=== PATIENT | male | born 1950 | race Caucasian/White ===

== ENCOUNTER → 2020-11-01 10:29 | Outpatient (BNVA) | payer MEDICARE, SELFPAY | PROVIDERS: Family Provider Nurse Practitioner; PCP Nurse Practitioner; Visit Provider Nurse Practitioner | DX: M25.562 Pain in left knee (principal) | CPT/HCPCS: 73562 ==

== ENCOUNTER → 2021-02-05 15:22 | Outpatient (BNVA) | payer MEDICARE, SELFPAY | PROVIDERS: Family Provider Nurse Practitioner; PCP Nurse Practitioner; Visit Provider Nurse Practitioner Family | DX: I10 Essential (primary) hypertension (principal); Z12.5 Encounter for screening for malignant neoplasm of prostate; M25.50 Pain in unspecified joint | CPT/HCPCS: 80053; 80061; 82306; 82607; 83735; 84443; 84550; 85025; 86140; 86160; 86162; 86200; 86235; 86255; 86376; 86431; 86618; 86666; 86757; G0103 ==

== ENCOUNTER 2021-03-02 13:28 | Outpatient (CLI) | payer MEDICARE, SELFPAY ==
--- NOTE | 2021-03-02 13:38 | XR_ITS ---
WS: [id number] Sacroiliac joints, 3 views, 03/02/2021 Clinical Data: M25.551 - Pain in right hip Comparison: None. Findings: The SI joints are normal in width inferiorly. No erosion, sclerosis or destruction is seen. There are no fractures or dislocations. There is loss of definition of the superior aspect of the SI joints wh ich can be seen with osteoarthritis. The adjacent visualized pelvis and hips are unremarkable. XR/XR sacroiliac jts m 3V [id number] Impression: Loss of definition of the superior aspect of the SI joints.
--- NOTE | 2021-03-02 13:38 | XR_ITS ---
WS: [id number] Lumbar spine, AP view, L5-S1 view, lateral in flexion, extension and neutral position, 03/02/2021 Clinical Data: M54.50 - Low back pain, unspecified Comparison: Lumbar spine, 08/23/2015. Findings: No subluxation is seen. There is a compression fracture of the L1 vertebral body with loss of 75% in the anterior and central vertebral body height. The loss of height is more than was noted 5 1/2 years ago. There is disc space narrowing from L1-L2 through L3-L4. There is a dextroscoliosis. There is os teoarthritic spurring from L1 through L5. The transverse processes and SI joints are normal. On flexion and extension there is no change in the height of the compression fracture and no limitati on of motion. XR/XR lumbar spine min 4V [id number] Impression: 1. Compression fracture of the L1 vertebral body which is worse slightly than b efore. 2. Dextroscoliosis in multilevel degenerative disc disease. 3. 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 4. No change in height of the compression fracture and no limitation of motion on flexion and extension.
== END 2021-03-02 13:29 | disposition home or self-care (01) ==
PROVIDERS: PCP Nurse Practitioner; Visit Provider Nurse Practitioner
DX: M25.551 Pain in right hip (principal); M25.552 Pain in left hip; S32.019A Unspecified fracture of first lumbar vertebra, initial encounter for closed fracture; X58.XXXA Exposure to other specified factors, initial encounter; M47.816 Spondylosis without myelopathy or radiculopathy, lumbar region; M51.36 Other intervertebral disc degeneration, lumbar region
CPT/HCPCS: 72110; 72202

== ENCOUNTER → 2021-03-13 10:50 | Outpatient (BNVA) | payer MEDICARE, SELFPAY | PROVIDERS: PCP Nurse Practitioner; Referring Provider Nurse Practitioner Family; Visit Provider Anesthesiology Pain Medicine | DX: M47.816 Spondylosis without myelopathy or radiculopathy, lumbar region (principal); M51.16 Intervertebral disc disorders with radiculopathy, lumbar region; M79.604 Pain in right leg; M79.605 Pain in left leg; F17.200 Nicotine dependence, unspecified, uncomplicated | CPT/HCPCS: 99204 ==

== ENCOUNTER 2021-03-28 06:57 | Outpatient (CLI) | payer MEDICARE, SELFPAY ==
--- NOTE | 2021-03-28 07:15 | MR_ITS ---
WS: [id number] MRI LUMBAR SPINE NONCONTRAST TECHNIQUE: Sagittal T1, T2 and STIR imaging. Axial T1 and T2 imaging. CLINICAL INFORMATION: M54.50 - Low back pain, unspecified COMPARISON: None. FINDINGS: Lumbar scoliosis. Chronic compression with anterior wedging L1 vertebral body with approximately 75% compression centrally. No retropulsion. No acute appearing compression fractures. L1-L2: Mild annular bulging with mild central canal stenosis. Impingement on the subarticular recess bilaterally left greater than right. Mild facet arthropathy. Mild right greater than left foraminal n arrowing. Mild facet arthropathy. L2-L3: Mild disc bulging with mild central canal stenosis. Impingement left subarticular recess and t raversing left L3 nerve root. Mild facet arthropathy. Mild bilateral foraminal narrowing. L3-L4: Mild disc bulging with moderate central canal stenosis. Mild facet arthropathy with ligamentum flavum flavum hypertrophy. Impingement on the subarticular recess bilaterally. Moderate left and mil d right foraminal narrowing. L4-L5: Mild disc bulging with moderate central canal stenosis. Impingement traversing L5 nerve roots bilaterally. Moderate facet arthropathy. Moderate to severe right and mild left foraminal narrowing. L5-S1: Shallow right pericentral protrusion impinges the traversing right S1 nerve root in the subart icular recess. Mild right bony foraminal narrowing. Left foramen is patent. Mild to moderate facet ar thropathy. Visualized pelvic bony structures: Normal. Paravertebral soft tissues: Normal. MR/MR lumbar spine wo con* [id number] IMPRESSION: 1. Lumbar curve convex right. No acute compression fractures. 2. Chronic compression fracture L1 vertebral body described above. No retropul justino. 3. Moderate central canal stenosis L3-4 and L4-5 with impingement subarticular recess bilaterally slightly worse at L4-5. 4. Shallow right pericentral protrusion L5-S1 impinges the traversing right S1 nerve root in the subarticular recess. 5. Mild central canal stenosis L1-2 and L2-3. 6. Moderate bony foraminal narrowing left L3-4 and moderate to severe right L4 -5.
== END 2021-03-28 06:58 | disposition home or self-care (01) ==
LOC: RADSHAW 06:58
PROVIDERS: PCP Nurse Practitioner; Visit Provider Anesthesiology Pain Medicine
DX: S32.019A Unspecified fracture of first lumbar vertebra, initial encounter for closed fracture (principal); X58.XXXA Exposure to other specified factors, initial encounter; M48.061 Spinal stenosis, lumbar region without neurogenic claudication; M51.27 Other intervertebral disc displacement, lumbosacral region
CPT/HCPCS: 72148

== ENCOUNTER 2022-07-25 10:57 | Outpatient (CLI) | payer MEDICARE, SELFPAY ==
[2022-07-25 11:59] LABS: Basophils # 0.1 10^3/uL (0.0-0.1); Basophils % 0.8 %; Eosinophils # 0.4 10^3/uL (0.0-0.8); Eosinophils % 3.5 %; Hematocrit 48.2 % (42.0-52.0); Hemoglobin 15.9 g/dL (11.7-16.6); Lymphocytes % 29.5 %; Mean Corpuscular Hemoglobin 31.7 pg (28.0-34.0); Mean Corpuscular Volume 96.2 fl (80-94); Mean Platelet Volume 9.6 fL (7.4-10.4); Monocytes # 1.2 10^3/uL (0.2-0.9); Monocytes % 11.7 %; Neutrophils % 54.1 %; Nucleated Red Blood Cells % 0 %; Platelet Count 258 10^3/cmm (130-400); Red Blood Count 5.01 10^6/uL (4.1-5.3); Red Cell Distribution Width 13.5 % (12.1-15.1)
[2022-07-25 12:20] LABS: Alanine Aminotransferase 15 U/L (0-41); Albumin Level 4.2 g/dL (3.5-5.2); Alkaline Phosphatase 79 U/L (40-130); Anion Gap 12.5 (5-19); Aspartate Amino Transferase 21 U/L (0-40); Blood Urea Nitrogen 21 mg/dL (8-23); Calcium 9.6 mg/dL (8.5-10.5); Carbon Dioxide 29 mmol/L (22-29); Chloride 97 mmol/L (98-107); Globulin 3.4 g/dL (1.3-4.6); Glomerular Filtration Rate 54.7 mL/min (90-130); Glucose 91 mg/dL (65-115); Osmolality Calculated 281 mOsm/kg (285-295); Potassium 4.5 mmol/L (3.5-5.1); Sodium 134 mmol/L (136-145); Total Bilirubin 0.6 mg/dL (0.15-1.2); Total Protein 7.6 g/dL (6.6-8.7)
== END 2022-07-25 10:58 | disposition home or self-care (01) ==
LOC: LAB 10:59
PROVIDERS: PCP Nurse Practitioner; Visit Provider Dermatology
DX: C44.91 Basal cell carcinoma of skin, unspecified (principal); Z79.899 Other long term (current) drug therapy
CPT/HCPCS: 36415; 80053; 85025

== ENCOUNTER 2022-08-08 10:52 | Outpatient (CLI) | payer MEDICARE, SELFPAY ==
[2022-08-08] MEDS: iohexol 350 mg/mL 500 mL Btl (per mL) IV (11:01)
--- NOTE | 2022-08-08 11:30 | CT_ITS ---
WS: [id number] CT NECK TECHNIQUE: Contrast-enhanced CT of the neck with coronal and sagittal reformatted images. CLINICAL INFORMATION: Basal cell carcinoma L cheek COMPARISON: None. DLP: 246.[address] scans at [facility] use at least one of these dose optimization techniques: automated e xposure control; mA and/or kV adjustment per patient size (includes targeted exams where dose is matc hed to clinical indication); or iterative reconstruction. FINDINGS: Mild skin thickening with soft tissue defect overlying the LEFT facial soft tissues compatible with p atient's known basal cell carcinoma. Mild skin thickening measuring 3 mm in maximum transverse dimens ion. Otherwise normal underlying soft tissues. No drainable fluid collections. Mild inflammatory caceres ges in the paranasal sinuses with mild polypoid mucosal thickening. Small amount of fluid in the RIGHT frontal sinus and frontal ethmoidal recess. Mild mucosal thickenin g sphenoid sinuses. Polypoid mucosal thickening along the RIGHT ostiomeatal unit. Normal posterior na sopharynx. Normal parapharyngeal fat. Parotid glands and submandibular glands are normal. No evidence of supraglottic or glottic mass. Normal thyroid gland. Lung apices are well aerated. No cervical lymphadenopathy. Straightening of the normal cervical lordosis. Disc space narrowing wors e at C5-C6 and C6-C7. Slight anterolisthesis C4 on C5 and C5 on C6. CT/CT neck w con* [id number] IMPRESSION: 1. Soft tissue defect with mild skin thickening overlying the LEFT facial soft tissues compatible with known basal cell carcinoma. Maximum transverse dimensi on 3.1 mm. No evidence of underlying deep soft tissue involvement. 2. No cervical lymphadenopathy. 3. Mild polypoid mucosal thickening in the paranasal sinuses. 4. Moderate spondylitic changes cervical spine.
== END 2022-08-08 10:53 | disposition home or self-care (01) ==
PROVIDERS: PCP Nurse Practitioner; Visit Provider Dermatology
DX: C44.91 Basal cell carcinoma of skin, unspecified (principal)
CPT/HCPCS: 70491; Q9967

== ENCOUNTER → 2022-09-11 13:02 | Outpatient (BNVA) | payer MEDICARE, SELFPAY | PROVIDERS: PCP Nurse Practitioner; Visit Provider Dermatology | DX: C44.319 Basal cell carcinoma of skin of other parts of face (principal); Z72.0 Tobacco use; L57.8 Other skin changes due to chronic exposure to nonionizing radiation; Z79.899 Other long term (current) drug therapy | CPT/HCPCS: 99214 ==

== ENCOUNTER → 2022-11-11 14:29 | Outpatient (BNVA) | payer MEDICARE, SELFPAY | PROVIDERS: PCP Nurse Practitioner; Visit Provider Dermatology | DX: C44.319 Basal cell carcinoma of skin of other parts of face (principal); L57.8 Other skin changes due to chronic exposure to nonionizing radiation; Z79.899 Other long term (current) drug therapy | CPT/HCPCS: 99214 ==

== ENCOUNTER → 2023-01-09 15:29 | Outpatient (BNVA) | payer MEDICARE, SELFPAY | PROVIDERS: PCP Nurse Practitioner; Visit Provider Dermatology | DX: C44.319 Basal cell carcinoma of skin of other parts of face (principal); Z79.899 Other long term (current) drug therapy; D22.4 Melanocytic nevi of scalp and neck | CPT/HCPCS: 99214 ==

== ENCOUNTER → 2023-03-11 15:42 | Outpatient (BNVA) | payer MEDICARE, SELFPAY | PROVIDERS: PCP Nurse Practitioner; Visit Provider Dermatology | DX: C44.319 Basal cell carcinoma of skin of other parts of face (principal); Z79.899 Other long term (current) drug therapy | CPT/HCPCS: 99214 ==

== ENCOUNTER → 2023-05-28 09:31 | Outpatient (BNVA) | payer MEDICARE, SELFPAY | PROVIDERS: PCP Nurse Practitioner; Visit Provider Dermatology | DX: D48.5 Neoplasm of uncertain behavior of skin (principal); C44.319 Basal cell carcinoma of skin of other parts of face | CPT/HCPCS: 11102; 99214 ==

== ENCOUNTER → 2023-09-29 13:00 | Outpatient (BNVA) | payer MEDICARE, SELFPAY | PROVIDERS: PCP Nurse Practitioner; Visit Provider Dermatology | DX: C44.319 Basal cell carcinoma of skin of other parts of face (principal); L57.0 Actinic keratosis; D36.11 Benign neoplasm of peripheral nerves and autonomic nervous system of face, head, and neck; L57.8 Other skin changes due to chronic exposure to nonionizing radiation | CPT/HCPCS: 17000; 99213 ==

== ENCOUNTER → 2024-03-30 13:46 | Outpatient (BNVA) | payer MEDICARE, SELFPAY | PROVIDERS: PCP Nurse Practitioner; Visit Provider Dermatology | DX: L57.8 Other skin changes due to chronic exposure to nonionizing radiation (principal); D22.39 Melanocytic nevi of other parts of face; D22.5 Melanocytic nevi of trunk; L98.8 Other specified disorders of the skin and subcutaneous tissue; Z85.828 Personal history of other malignant neoplasm of skin; D48.5 Neoplasm of uncertain behavior of skin; L57.0 Actinic keratosis | CPT/HCPCS: 11102; 17000; 99213 ==

== ENCOUNTER 2024-11-24 10:12 | Emergency (ER) | payer MEDICARE, SELFPAY ==
[2024-11-24 10:40] LABS: Hematocrit 45.4 % (37-53); Hemoglobin 15.20 g/dL (11.27-16.99); Mean Corpuscular HGB Conc 33.5 g/dL (30-55); Mean Corpuscular Hemoglobin 30.9 pg (27-33); Mean Corpuscular Volume 92.3 fl (82-101); Platelet Count 191 10^3/cmm (157-399); Red Blood Count 4.92 10^6/uL (3.85-5.65); White Blood Count 17.87 10^3/uL (3.29-11.43)
[2024-11-24 10:59] VITALS: BP 134/83; PULSE 77; RESP 18; TEMP 36.8; O2SAT 97; BMI 30.7
[2024-11-24 11:00] LABS: Slide Review Slide Review Perform
[2024-11-24 11:01] LABS: Absolute Segmented Neutrophil 2.9 10/cmm (1.6-7.1); Atypical Lymphs 21.0 % (0-5); Band Neutrophils Absolute 0.0 10^3/cmm (0.0-1.2); Total Cells Counted 100 (0-100)
[2024-11-24 11:10] LABS: Alanine Aminotransferase 73 U/L (0-41); Albumin Level 3.7 g/dL (3.5-5.2); Alkaline Phosphatase 200 U/L (40-130); Anion Gap 13.6 (5-19); Aspartate Amino Transferase 77 U/L (0-40); Blood Urea Nitrogen 25 mg/dL (8-23); Calcium 9.4 mg/dL (8.5-10.5); Carbon Dioxide 30 mmol/L (22-29); Chloride 99 mmol/L (98-107); Creatinine Clr Calc Pharmacy 53.5790; Globulin 3.3 g/dL (1.3-4.6); Glucose 98 mg/dL (65-115); NT Pro B Type Natriuretic Pept 347 pg/mL (0-125); Osmolality Calculated 288 mOsm/kg (285-295); Potassium 5.6 mmol/L (3.5-5.1); Sodium 137 mmol/L (136-145); Total Protein 7.0 g/dL (6.6-8.7)
[2024-11-24 11:34] VITALS: BP 158/86; PULSE 74; RESP 18; O2SAT 98
--- NOTE | 2024-11-24 12:02 | W.ED.GENADLT ---
HPI - General Adult General: Chief complaint: General Medical Stated complaint: legs swollen Time Seen by Provider: 11/24/24 11:55 History of Present Illness: 74-year-old male presents to the emergency room with complaints of leg swelling some abdominal discomfort he said poor appetite the last several days. Denies chest pain no fever sweats or chills. Has some mild exertional dyspnea and nonproductive cough. Increased swelling of the lower extremities Associated symptoms: Reports dyspnea; Deny chest pain or rash Related Data Home Medications ?Medication ?Instructions ?Recorded ?Confirmed ibuprofen 200 mg tablet (Advil) 600 mg PO Q6H PRN Fever Or Pain 11/24/24 11/24/24 apfizrmlvzhq-rja-hpanu acid-vit 1 tab PO DAILY 11/24/24 11/24/24 K-lycop 400 mcg-20 mcg-370 mcg tablet (Men's 50 Plus Multivitamin) Previous Rx's ?Medication ?Instructions ?Recorded albuterol sulfate 90 mcg/actuation 2 inh inhalation Q4H PRN shortness 11/24/24 aerosol inhaler of breath or wheezing #18 grams budesonide-formoterol HFA 80 2 inh inhalation BID #10.2 grams 11/24/24 mcg-4.5 mcg/actuation aerosol inhaler (Symbicort) furosemide 20 mg tablet (Lasix) 20 mg PO DAILY #30 tabs 11/24/24 Allergies Allergy/AdvReac Type Severity Reaction Status Date / Time No Known Allergies Allergy Verified 07/25/22 10:02 Review of Systems Const: Denies: fever(s) or chills Card: Reports: swelling of feet/ankles and dyspnea on exertion; Denies: chest pain Resp: Reports: dyspnea, non-productive cough, wheezing and chest congestion GI: Denies: abdominal pain : Denies: dysuria, urinary frequency or urinary urgency Musc: Denies: neck pain or back pain Skin/Breast: Denies: rash PFSH ED PFSH: Medical History 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 Surgical History History of cataract surgery right eye History of left knee surgery Family History Other Cancer Diabetes Denies family history of Dementia Hypertension Stroke Social History Smoking and tobacco/nicotine status: current every day tobacco/nicotine user cigarettes [ Other cigarette details: 1 Pack per week] and e-cigarettes E-Cigarette Details: vaporizer device E-cig/vape details: 0.5 mg nicotine Second hand smoke exposure: No Alcohol intake: current Alcohol intake frequency: 0-2 Drinks per Day Alcohol type: hard liquor Substance/Drug Use: former Adopted: No Caregiver/support person: No Lives independently: Yes Household members: significant other Housing: House Marital status: Single Number of children: 2 Number of grandchildren: 8 service: No Current occupational status: retired Do you think of yourself as: Straight/Heterosexual Current gender identity: Male Special ana needs: No Physical Exam Const: GENERAL APPEARANCE: cooperative ORIENTATION/CONSCIOUSNESS: Yes awake, Yes oriented to person, Yes oriented to place and Yes oriented to time HENMT: COMMON NORMALS: normocephalic, atraumatic and hearing grossly normal bilaterally HEAD & SCALP: normocephalic and atraumatic Resp: COMMON NORMALS: normal respiratory effort, No retractions and No use of accessory muscles AUSCULTATION: crackles and wheezes Cardio: COMMON NORMALS: regular rate, regular rhythm and No murmurs present (Cardio) RATE: regular rate RHYTHM: regular rhythm GI: COMMON NORMALS: Soft to palpation and No hepatosplenomegaly present AUSCULTATION: Yes normoactive bowel sounds PALPATION: Yes Soft to palpation, No Tenderness to palpation present (GI), No Guarding due to palpation present (GI) and Yes No hepatosplenomegaly present Extremity: COMMON NORMALS: normal to inspection, capillary refill normal, no clubbing, cyanosis or edema, no calf tenderness and no pedal edema Neuro: SENSORIUM/ORIENTATION: Yes oriented to person, Yes oriented to place and Yes oriented to time Skin: COMMON NORMALS: no rashes or lesions noted GENERAL SKIN EXAM: no rashes or lesions noted Course Vital Signs: Vital signs: Vital Signs Temperature 98.3 F 11/24/24 10:59 Pulse Rate 89 11/24/24 14:25 Respiratory Rate 18 11/24/24 14:25 Blood Pressure 155/95 11/24/24 14:25 Pulse Oximetry 98 11/24/24 14:25 Oxygen Delivery Me thod Room Air 11/24/24 12:59 MDM - General Adult Medical Decision Making Improved with nebulizer. She states he feels much better. He said some urination as well. Will discharge him home on Lasix 20 mg daily start him on Symbicort 2 puffs twice daily albuterol to use as needed December for outpatient PFTs and echocardiogram follow-up with cardiology and pulmonology Medical Records I reviewed the patient's medical records. Lab Data I reviewed the patient's lab results. 11/24/24 10:35 11/24/24 10:35 Radiology Impressions Chest X-Ray 11/24/24 12:04 IMPRESSION: No acute findings. Laboratory Results WBC 17.87 10^3/uL (3.29-11.43) H 11/24/24 10:35 RBC 4.92 10^6/uL (3.85-5.65) 11/24/24 10:35 Hgb 15.20 g/dL (11.27-16.99) 11/24/24 10:35 Hct 45.4 % (37-53) 11/24/24 10:35 MCV 92.3 fl (82-101) 11/24/24 10:35 MCH 30.9 pg (27-33) 11/24/24 10:35 MCHC 33.5 g/dL (30-55) 11/24/24 10:35 RDW 13.5 % (12.1-15.1) 11/24/24 10:35 Plt Count 191 10^3/cmm (157-399) 11/24/24 10:35 MPV 10.4 fL (7.4-10.4) 11/24/24 10:35 Lymph % (Auto) Not Reportable 11/24/24 10:35 [place] % (Auto) Not Reportable 11/24/24 10:35 Lymph # (Auto) Not Reportable 11/24/24 10:35 [place] # (Auto) Not Reportable 11/24/24 10:35 Total Counted 100 (0-100) 11/24/24 10:35 Atypical Lymphs % 21.0 % (0-5) H 11/24/24 10:35 Absolute Neutrophils 2.9 10^3/cmm (1.4-6.5) 11/24/24 10:35 Segmented Neutrophils 16 % 11/24/24 10:35 Band Neutrophils 0.0 % 11/24/24 10:35 Absolute Lymphocytes 14.1 10^3/cmm (1.2-3.4) H 11/24/24 10:35 Lymphocytes (Manual) 58 % 11/24/24 10:35 Monocytes (Manual) 5.0 % 11/24/24 10:35 Absolute Monocytes 0.9 10^3/cmm (0.1-0.6) H 11/24/24 10:35 Eosinophils (Manual) 0 % 11/24/24 10:35 Absolute Eosinophils 0.0 10^3/cmm (0.0-0.7) 11/24/24 10:35 Basophils (Manual) 0.0 % 11/24/24 10:35 Absolute Basophils 0.0 10^3/cmm (0.0-0.2) 11/24/24 10:35 Platelet Estimate Normal (Normal) 11/24/24 10:35 Sodium 137 mmol/L (136-145) 11/24/24 10:35 Potassium 5.6 mmol/L (3.5-5.1) H 11/24/24 10:35 Chloride 99 mmol/L (98-107) 11/24/24 10:35 Carbon Dioxide 30 mmol/L (22-29) H 11/24/24 10:35 Anion Gap 13.6 (5-19) 11/24/24 10:35 BUN 25 mg/dL (8-23) H 11/24/24 10:35 Creatinine 1.5 mg/dL (0.7-1.2) H 11/24/24 10:35 GFR Calculation Not Reportable 11/24/24 10:35 Glucose 98 mg/dL (65-115) 11/24/24 10:35 Calculated Osmolality 288 mOsm/kg (285-295) 11/24/24 10:35 Calcium 9.4 mg/dL (8.5-10.5) 11/24/24 10:35 Total Bilirubin 0.4 mg/dL (0.15-1.2) 11/24/24 10:35 AST 77 U/L (0-40) H 11/24/24 10:35 ALT 73 U/L (0-41) H 11/24/24 10:35 Alkaline Phosphatase 200 U/L (40-130) H 11/24/24 10:35 NT-Pro-B Natriuret Pep 347 pg/mL (0-125) H 11/24/24 10:35 Total Protein 7.0 g/dL (6.6-8.7) 11/24/24 10:35 Albumin 3.7 g/dL (3.5-5.2) 11/24/24 10:35 Globulin 3.3 g/dL (1.3-4.6) 11/24/24 10:35 Urine Color Yellow (Yellow) 11/24/24 14:21 Urine Appearance Clear (CLEAR) 11/24/24 14:21 Urine pH 5.5 (5-7) 11/24/24 14:21 Ur Specific [place] 1.006 (1.005-1.030) 11/24/24 14:21 Urine Protein Negative (Negative) 11/24/24 14:21 Urine Glucose (UA) Negative (Normal) 11/24/24 14:21 Urine Ketones Negative (Negative) 11/24/24 14:21 Urine Blood Negative (Negative) 11/24/24 14:21 Urine Nitrate Negative (Negative) 11/24/24 14:21 Urine Bilirubin Negative (Negative) 11/24/24 14:21 Urine Urobilinogen 0.2 mg/dL (Negative) 11/24/24 14:21 Ur Leukocyte Esterase Negative (Negative) 11/24/24 14:21 Urine RBC 0-2 /hpf (0-2) 11/24/24 14:21 Urine WBC 0-5 /hpf (0-5) 11/24/24 14:21 Ur Squamous Epith Cells 0-5 /hpf (0-5) 11/24/24 14:21 Amorphous Sediment Not Reportable 11/24/24 14:21 Urine Bacteria None seen /hpf (NONE) 11/24/24 14:21 Hyaline Casts 0-4 /lpf H 11/24/24 14:21 All radiology interpretation(s) finalized by discharge Discharge Plan Discharge Patient Disposition: Home Clinical Impression: COPD (chronic obstructive pulmonary disease) Qualifiers: COPD type: COPD with acute exacerbation Qualified Code(s): J44.1 - Chronic obstructive pulmonary disease with (acute) exacerbation HTN (hypertension) Qualifiers: Hypertension type: primary hypertension Qualified Code(s): I10 - Essential (primary) hypertension Condition: Stable Prescriptions: New furosemide [Lasix] 20 mg tablet 20 mg PO DAILY Qty: 30 0RF albuterol sulfate 90 mcg/actuation HFA aerosol inhaler 2 inh INHALATION Q4H PRN (Reason: shortness of breath or wheezing) Qty: 18 0RF budesonide-formoterol [Symbicort] 80-4.5 mcg/actuation HFA aerosol inhaler 2 inh inhalation BID Qty: 10.2 0RF No Action ibuprofen [Advil] 200 mg Tablet 600 mg PO Q6H PRN (Reason: Fever Or Pain) Men's 50 Plus Multivitamin 400-20-370 mcg Tablet 1 tab PO DAILY Discharge Orders: Discharge ED (Routine); Ordered 11/24/24 Ordered By: Tolu Schulte Referrals: Marc Thomas FNP-C [Primary Care Provider, Family Practice] Discharge Diet: Usual diet Discharge Activity: Resume usual activity Patient Instructions: Opioid Safety, Pain Management, Patient Portal & Sy[place] Instructions Activity Restrictions/Additional Instructions: [email or web address]. It is very important that you follow up as instructed or that you return to the Emergency Department should you have concerns or if your condition changes or worsens in any way. You were seen in the emergency room with complaints of shortness of breath. On evaluation in the emergency room you did have some slight wheezing which you reported improved and your breathing improved after breathing treatment. You are also showed some signs of fluid overload and hypertension recommend that you start on Lasix 20 mg once daily. Will set you up for an outpatient echocardiogram. For your breathing recommend he start on Symbicort 2 puffs twice daily and use albuterol as needed will set you up for outpatient pulmonary function test case management make arrangements for you to follow-up at the pulmonology and cardiology clinics for these things. Print Language: Bruneian Coding Level of Care Code ED Automatic Line Set Up Mechanic for Esther Kenny
--- NOTE | 2024-11-24 12:04 | XRR_ITS ---
PROCEDURE INFORMATION: Exam: XR Chest Exam date and time: 11/24/2024 12:09 PM Age: 74 years old Clinical indication: Cough and dyspnea; Additional info: Dyspnea/cough TECHNIQUE: Imaging protocol: Radiologic exam of the chest. Views: 1 view. COMPARISON: No relevant prior studies available. FINDINGS: Lungs: Lungs appear hyperinflated. No consolidation. Pleural spaces: Unremarkable. No pleural effusion. No pneumothorax. Heart/Mediastinum: Unremarkable. No cardiomegaly. Bones/joints: Unremarkable. XR/XR chest 1V portable [id number] IMPRESSION: No acute findings.
[2024-11-24] MEDS: FUROsemide 10 mg/mL SDV 4mL 40 MG IVP (12:51)
[2024-11-24 12:59] VITALS: PULSE 71; RESP 18; O2SAT 99
[2024-11-24 13:05] VITALS: PULSE 75
[2024-11-24 14:13] VITALS: BP 155/95; PULSE 75; RESP 18; O2SAT 98
[2024-11-24 14:25] VITALS: BP 155/95; PULSE 89; RESP 18; O2SAT 98
[2024-11-24 14:33] LABS: Glucose Urine UA Negative (Normal); Nitrate Urine Negative (Negative); Specific Gravity, Urine 1.006 (1.005-1.030)
[2024-11-24 14:36] LABS: Add Urine Microscopic? YES
--- NOTE | 2024-11-25 16:43 | PC.NURSE ---
Cardiology and pulmonology referral sent.
== END 2024-11-24 14:26 | disposition home or self-care (01) ==
PROVIDERS: Emergency Medicine; Emergency Provider Family Medicine; PCP Nurse Practitioner
DX: J44.1 Chronic obstructive pulmonary disease with (acute) exacerbation (principal); I10 Essential (primary) hypertension; F17.210 Nicotine dependence, cigarettes, uncomplicated; Z85.828 Personal history of other malignant neoplasm of skin
CPT/HCPCS: 36415; 71045; 80053; 81001; 83880; 85007; 85025; 94640; 96374; 99284; J1938; J9999

== ENCOUNTER 2024-12-28 11:21 | Outpatient (CLI) | payer MEDICARE, SELFPAY | END 2024-12-28 11:22 | disposition home or self-care (01) | PROVIDERS: PCP Nurse Practitioner; Visit Provider Family Medicine | DX: R06.02 Shortness of breath (principal); J44.1 Chronic obstructive pulmonary disease with (acute) exacerbation; R94.2 Abnormal results of pulmonary function studies | CPT/HCPCS: 94010; 94726; 94729 ==

== ENCOUNTER → 2024-12-30 13:15 | Outpatient (BNVA) | payer MEDICARE, SELFPAY | PROVIDERS: PCP Nurse Practitioner; Visit Provider Dermatology | DX: L57.8 Other skin changes due to chronic exposure to nonionizing radiation (principal); D22.39 Melanocytic nevi of other parts of face; D22.5 Melanocytic nevi of trunk; D22.4 Melanocytic nevi of scalp and neck; L98.8 Other specified disorders of the skin and subcutaneous tissue; L81.4 Other melanin hyperpigmentation; D48.5 Neoplasm of uncertain behavior of skin; Z85.828 Personal history of other malignant neoplasm of skin; L57.0 Actinic keratosis | CPT/HCPCS: 17000; 99213 ==

== ENCOUNTER 2025-01-06 14:11 | Outpatient (CLI) | payer MEDICARE, SELFPAY | END 2025-01-06 14:12 | disposition home or self-care (01) | LOC: RAD 14:12 | PROVIDERS: PCP Nurse Practitioner; Visit Provider Family Medicine | DX: R06.02 Shortness of breath (principal); I10 Essential (primary) hypertension | CPT/HCPCS: 93306 ==

== ENCOUNTER → 2025-03-10 12:09 | Outpatient (BNVA) | payer MEDICARE, SELFPAY | PROVIDERS: PCP Nurse Practitioner; Visit Provider Internal Medicine Cardiovascular Disease | DX: I35.0 Nonrheumatic aortic (valve) stenosis (principal); I50.32 Chronic diastolic (congestive) heart failure; R74.01 Elevation of levels of liver transaminase levels; Z87.891 Personal history of nicotine dependence; R06.02 Shortness of breath; R07.9 Chest pain, unspecified | CPT/HCPCS: 93005; 99204 ==

== ENCOUNTER → 2025-03-31 15:40 | Outpatient (BNVA) | payer MEDICARE, SELFPAY | PROVIDERS: PCP Nurse Practitioner; Visit Provider Nurse Practitioner | DX: Z12.5 Encounter for screening for malignant neoplasm of prostate (principal); I10 Essential (primary) hypertension; R06.02 Shortness of breath | CPT/HCPCS: 80053; 83880; 85025; G0103 ==

== ENCOUNTER → 2025-04-07 10:11 | Outpatient (BNVA) | payer MEDICARE, SELFPAY | PROVIDERS: PCP Nurse Practitioner; Visit Provider Internal Medicine | DX: R06.00 Dyspnea, unspecified (principal); R05.3 Chronic cough; I50.9 Heart failure, unspecified; I35.0 Nonrheumatic aortic (valve) stenosis; Z77.120 Contact with and (suspected) exposure to mold (toxic); Z87.891 Personal history of nicotine dependence; T78.40XA Allergy, unspecified, initial encounter; X58.XXXA Exposure to other specified factors, initial encounter; J44.9 Chronic obstructive pulmonary disease, unspecified | CPT/HCPCS: 36415; 85025; 86003; 99204; Q3014 ==